=== PATIENT | female | born 1990 | race Hispanic/Latino ===

== ENCOUNTER 2022-01-28 13:13 | Emergency (ER) | payer SELFPAY ==
[2022-01-28] MEDS ORDERED: Morphine 4 MG/ML VIAL ONE (14:54)
[2022-01-28] MEDS ORDERED: Ondansetron PF 4 MG/2 ML Vial ONE (15:06)
[2022-01-28] MEDS ORDERED: methylPREDNISolone Sod Succ/PF 125 MG/2 ML VIAL ONE (15:23)
[2022-01-28] MEDS ORDERED: Magnesium 5 GM/10 ML Abboject SYRINGE ONE (15:36)
== END 2022-01-28 15:34 | disposition short-term general hospital (02) ==
LOC: ERS 13:13
DX: O47.02 False labor before 37 completed weeks of gestation, second trimester (principal); Z3A.27 27 weeks gestation of pregnancy
CPT/HCPCS: 96374; 96375; J2270; J2405; J2930; J3475